=== PATIENT | female | born 1995 | race American Indian/Alaskan Native ===

== ENCOUNTER 2017-03-29 21:39 | Emergency (ER) | payer OTHER ==
[2017-03-29 21:51] VITALS: BP 121/46
--- NOTE | 2017-03-29 22:41 | Emergency Department Report ---
- General Chief Complaint: Upper Respiratory Infection Stated Complaint: PRESSURE IN EARS, NOSE & EYES Time Seen by Provider: 03/29/17 22:25 Source: patient Mode of arrival: Ambulatory Limitations: No Limitations - History of Present Illness Initial Comments: This is a 21-year-old female nontoxic, well nourished in appearance, no acute signs of distress presents to the ED complaining of congestion, rhinorrhea, cough, and frontal sinus pain 3 days. Patient stated her daughter was diagnosed with upper wrist infection and sinusitis and is being treated with Augmentin. She denies any chest pain, shortness of breath, fever, chills, nausea, vomiting, headache, earache, numbness or tingling. Patient denies any allergies. Past medical history includes migraine headaches. MD Complaint: cough, rhinorrhea, nasal congestion, sinus pain -: Gradual, days(s) (3) Severity: mild Severity scale (0 -10): 6 Quality: aching Consistency: constant Improves With: nothing Worsens With: nothing Context: sick contacts (daughter) Associated Symptoms: rhinorrhea, nasal congestion, cough, other (frontal sinus pain). denies: fever, chills, myalgias, diaphoresis, headache, sore throat, stiff neck, chest pain, shortness of breath, abdominal pain, nausea, diarrhea, dysuria, rash, confusion, right sweats, weight loss, epistaxis, hoarseness, ear pain Treatments Prior to Arrival: none - Related Data Previous Rx's Medication Instructions Recorded Last Taken Type Amoxicillin/K Clav Tab [Augmentin 1 tab PO Q12HR #20 tab 03/29/17 Unknown Rx 875 mg] Allergies Allergy/AdvReac Type Severity Reaction Status Date / Time No Known Allergies Allergy Verified 03/29/17 21:45 ED Review of Systems ROS: Stated complaint: PRESSURE IN EARS, NOSE & EYES Other details as noted in HPI Constitutional: denies: chills, fever Eyes: denies: eye pain, eye discharge, vision change ENT: denies: ear pain, throat pain Respiratory: cough. denies: shortness of breath, wheezing Cardiovascular: denies: chest pain, palpitations Endocrine: no symptoms reported Gastrointestinal: denies: abdominal pain, nausea, diarrhea Genitourinary: denies: urgency, dysuria, discharge Musculoskeletal: denies: back pain, joint swelling, arthralgia Skin: denies: rash, lesions Neurological: denies: headache, weakness, paresthesias Psychiatric: denies: anxiety, depression Hematological/Lymphatic: denies: easy bleeding, easy bruising ED Past Medical Hx - Past Medical History Hx Headaches / Migraines: Yes - Surgical History Past Surgical History?: Yes Additional Surgical History: wisdom teeth - Social History Smoking Status: Never Smoker Substance Use Type: None - Medications Home Medications: Home Medications Medication Instructions Recorded Confirmed Last Taken Type Amoxicillin/K Clav Tab [Augmentin 1 tab PO Q12HR #20 tab 03/29/17 Unknown Rx 875 mg] ED Physical Exam - General Limitations: No Limitations General appearance: alert, in no apparent distress - Head Head exam: Present: atraumatic, normocephalic, normal inspection - Eye Eye exam: Present: normal appearance, PERRL, EOMI. Absent: scleral icterus, conjunctival injection, nystagmus, periorbital swelling, periorbital tenderness Pupils: Present: normal accommodation - ENT ENT exam: Present: normal exam, normal orophraynx, mucous membranes moist, TM's normal bilaterally, normal external ear exam - Neck Neck exam: Present: normal inspection, full ROM. Absent: tenderness, meningismus, lymphadenopathy, thyromegaly - Respiratory Respiratory exam: Present: normal lung sounds bilaterally. Absent: respiratory distress, wheezes, rales, rhonchi, stridor, chest wall tenderness, accessory muscle use, decreased breath sounds, prolonged expiratory - Cardiovascular Cardiovascular Exam: Present: regular rate, normal rhythm, normal heart sounds. Absent: bradycardia, tachycardia, irregular rhythm, systolic murmur, diastolic murmur, rubs, gallop - GI/Abdominal GI/Abdominal exam: Present: soft, normal bowel sounds. Absent: distended, tenderness, guarding, rebound, rigid, diminished bowel sounds - Rectal Rectal exam: Present: deferred - Extremities Exam Extremities exam: Present: normal inspection, full ROM, normal capillary refill. Absent: tenderness, pedal edema, joint swelling, calf tenderness - Back Exam Back exam: Present: normal inspection, full ROM. Absent: tenderness, CVA tenderness (R), CVA tenderness (L), muscle spasm, paraspinal tenderness, vertebral tenderness, rash noted - Neurological Exam Neurological exam: Present: alert, oriented X3, CN II-XII intact, normal gait, reflexes normal - Psychiatric Psychiatric exam: Present: normal affect, normal mood - Skin Skin exam: Present: warm, dry, intact, normal color. Absent: rash - Other Other exam information: Frontal sinus tenderness upon palpation. ED Course Vital Signs 03/29/17 21:45 Temperature 98.5 F Pulse Rate 84 Respiratory 16 Rate Blood Pressure 121/46 O2 Sat by Pulse 95 Oximetry - Reevaluation(s) Reevaluation #1: 03/29/17 22:40 Patient speaking in full sentences but no signs of distress. Critical care attestation.: If time is entered above; I have spent that time in minutes in the direct care of this critically ill patient, excluding procedure time. ED Disposition Clinical Impression: Sinusitis Qualifiers: Sinusitis location: frontal Chronicity: unspecified Qualified Code(s): J32.1 - Chronic frontal sinusitis Disposition: - TO HOME OR SELFCARE Is pt being admited?: No Does the pt Need Aspirin: No Condition: Stable Instructions: Amoxicillin/Clavulanate Potassium (By mouth), Sinusitis (ED) Additional Instructions: Follow-up with a primary care doctor in 3-5 days or if symptoms worsen and continue return to emergency room as soon as possible possible. Prescriptions: Amoxicillin/K Clav Tab [Augmentin 875 mg] 1 tab PO Q12HR #20 tab Referrals: JACKSON SHARP MD [Primary Care Provider] - 3-5 Days Forms: Work/School Release Form(ED)
== END 2017-03-29 22:55 | disposition home or self-care (01) ==
LOC: ED 21:39
DX: J32.1 Chronic frontal sinusitis (principal); G43.909 Migraine, unspecified, not intractable, without status migrainosus
CPT/HCPCS: 99282

== ENCOUNTER 2017-07-03 21:30 | Emergency (ER) | payer OTHER ==
[2017-07-03 21:39] VITALS: BP 129/69
[2017-07-03] MEDS ORDERED: TYLENOL PO ONE (22:44)
--- NOTE | 2017-07-03 22:52 | Emergency Department Report ---
ED ENT HPI - General Chief complaint: Sore Throat Stated complaint: SORE THROAT Time Seen by Provider: 07/03/17 21:53 Source: patient Mode of arrival: Ambulatory Limitations: No Limitations - History of Present Illness Initial comments: PT states she started having a sore throat on . PT states she has not taken anything for this because she was just dx with by her [employer] on 07-02-17. PT states she has nausea but no vomiting. PT states she is having nasal congestion and cough. Denies fever or body aches. PT states she came to the hospital because she was afraid she might make her 3 year old sick. PT states the 3 year old has not been sick MD complaint: sore throat -: Gradual, days(s) (3) Severity scale (0 -10): 6 Quality: aching Consistency: constant Improves with: cold therapy (pt states it feels better when cold air hits her throat ) Worsens with: swallowing, eating Associated Symptoms: cough, pain with swallowing, sore throat, rhinorrhea. denies: fever - Related Data Previous Rx's Medication Instructions Recorded Last Taken Type Acetaminophen [Tylenol Extra 500 mg PO QID PRN #15 tablet 07/03/17 Unknown Rx Strength] Allergies Allergy/AdvReac Type Severity Reaction Status Date / Time No Known Allergies Allergy Verified 07/03/17 21:37 ED Dental HPI - General Chief complaint: Sore Throat Stated complaint: SORE THROAT Time Seen by Provider: 07/03/17 21:53 Source: patient Mode of arrival: Ambulatory Limitations: No Limitations - Related Data Previous Rx's Medication Instructions Recorded Last Taken Type Acetaminophen [Tylenol Extra 500 mg PO QID PRN #15 tablet 07/03/17 Unknown Rx Strength] Allergies Allergy/AdvReac Type Severity Reaction Status Date / Time No Known Allergies Allergy Verified 07/03/17 21:37 ED Review of Systems ROS: Stated complaint: SORE THROAT Other details as noted in HPI Comment: All other systems reviewed and negative Constitutional: denies: fever, weakness ENT: as per HPI, throat pain. denies: ear pain Respiratory: cough. denies: shortness of breath, SOB with exertion, SOB at rest Gastrointestinal: nausea. denies: abdominal pain, vomiting Genitourinary: other (recently dx with ) Neurological: denies: headache ED Past Medical Hx - Past Medical History Hx Headaches / Migraines: Yes - Surgical History Additional Surgical History: wisdom teeth - Social History Smoking Status: Never Smoker Substance Use Type: None - Medications Home Medications: Home Medications Medication Instructions Recorded Confirmed Last Taken Type Acetaminophen [Tylenol Extra 500 mg PO QID PRN #15 tablet 07/03/17 Unknown Rx Strength] ED Physical Exam - General Limitations: No Limitations General appearance: alert, in no apparent distress - Head Head exam: Present: atraumatic, normocephalic, normal inspection - Eye Eye exam: Present: normal appearance, PERRL, EOMI. Absent: conjunctival injection - ENT ENT exam: Present: normal exam, normal orophraynx, mucous membranes moist, TM's normal bilaterally, normal external ear exam - Neck Neck exam: Present: normal inspection, full ROM. Absent: lymphadenopathy - Respiratory Respiratory exam: Present: normal lung sounds bilaterally. Absent: respiratory distress, chest wall tenderness - Cardiovascular Cardiovascular Exam: Present: regular rate, normal rhythm, normal heart sounds - GI/Abdominal GI/Abdominal exam: Present: soft, normal bowel sounds. Absent: tenderness, guarding, rebound - Extremities Exam Extremities exam: Present: normal inspection, full ROM - Back Exam Back exam: Present: normal inspection, full ROM. Absent: tenderness, CVA tenderness (R), CVA tenderness (L) - Psychiatric Psychiatric exam: Present: normal affect, normal mood - Skin Skin exam: Present: warm, dry, intact, normal color ED Course Vital Signs 07/03/17 07/03/17 21:37 23:00 Temperature 98.2 F Pulse Rate 111 H Respiratory 18 18 Rate Blood Pressure 129/69 O2 Sat by Pulse 98 Oximetry - Reevaluation(s) Reevaluation #1: 07/03/17 22:59 PT aware of rapid strep results and dx. Pt has no questions at this time. - Pulse Oximetry Interpretation Digit-Finger Initial Pulse Oximetry Readin Actions Taken: none ED Medical Decision Making - Lab Data rapid strep negative - Differential Diagnosis strep pharyngits, uri Critical Care Time: No Critical care attestation.: If time is entered above; I have spent that time in minutes in the direct care of this critically ill patient, excluding procedure time. ED Disposition Clinical Impression: Viral URI with cough Disposition: TO HOME OR SELFCARE Is pt being admited?: No Does the pt Need Aspirin: No Condition: Stable Instructions: Pharyngitis (ED), Cold Symptoms (ED) Additional Instructions: Increase fluids Take your vitamins check with your pharmacist or [employer] before taking any OTC medication follow up with [employer] as scheduled Follow up with PCP in 3- 5 days Return to the ED if worsening or concerns Prescriptions: Acetaminophen [Tylenol Extra Strength] 500 mg PO QID PRN #15 tablet PRN Reason: Pain , Severe (7-10) Referrals: LIANA ADAMS MD [Primary Care Provider] - 3-5 Days Forms: Work/School Release Form(ED) Time of Disposition: 23:05
== END 2017-07-03 23:17 | disposition home or self-care (01) ==
LOC: ED 21:30
DX: O26.891 Other specified pregnancy related conditions, first trimester (principal); J06.9 Acute upper respiratory infection, unspecified; G43.909 Migraine, unspecified, not intractable, without status migrainosus; Z3A.01 Less than 8 weeks gestation of pregnancy
CPT/HCPCS: 87116; 87430; 99282

== ENCOUNTER 2018-04-20 17:48 | Emergency (ER) | payer OTHER ==
[2018-04-20] MEDS ORDERED: NACL 0.9% 500 ML 500 ML IV ONE (18:33)
--- NOTE | 2018-04-20 18:34 | Emergency Department Report ---
ED General Adult HPI - General Chief complaint: Chest Pain Stated complaint: LEFT FOOT/CHEST PAIN Time Seen by Provider: 04/20/18 18:26 Source: patient, RN notes reviewed Mode of arrival: Wheelchair Limitations: No Limitations - History of Present Illness Initial comments: This is a pleasant 22-year-old female who is not known to this provider previously, she is 2, para 2, and delivered approximately 5 weeks ago. Presents to the ER with complaint of central chest pain for 4 days, which is central, does not radiate anywhere, and increases with deep inspiration and decreases with rest. She describes mild shortness of breath. This source of breath is intermittent. She also describes nontraumatic left foot pain and swelling, greater over the past 4 days. The symptoms are constant. They do not radiate anywhere. She denies medical issues during her recent , and specifically denies hypertension or preeclampsia. She reports that she had a for this recent delivery, and reports that she has follow-up tomorrow with her [employer] doctor. -: Gradual, days(s) Location: chest, left, lower extremity Quality: aching Consistency: constant Improves with: rest Worsens with: movement Associated Symptoms: chest pain, shortness of breath, other (left foot pain, left foot swelling). denies: confusion, cough, diaphoresis, fever/chills, headaches, loss of appetite, malaise, nausea/vomiting, rash, seizure, syncope, weakness - Related Data Previous Rx's Medication Instructions Recorded Last Taken Type Acetaminophen [Tylenol Extra 500 mg PO QID PRN #15 tablet 07/03/17 Unknown Rx Strength] Allergies Allergy/AdvReac Type Severity Reaction Status Date / Time No Known Allergies Allergy Verified 04/20/18 18:00 ED Review of Systems ROS: Stated complaint: LEFT FOOT/CHEST PAIN Other details as noted in HPI ED Past Medical Hx - Past Medical History Hx Headaches / Migraines: Yes Hx Psychiatric Treatment: Yes (depression, bipolar) - Surgical History Additional Surgical History: wisdom teeth, c/s - Social History Smoking Status: Never Smoker Substance Use Type: None - Medications Home Medications: Home Medications Medication Instructions Recorded Confirmed Last Taken Type Acetaminophen [Tylenol Extra 500 mg PO QID PRN #15 tablet 07/03/17 Unknown Rx Strength] ED Physical Exam - General Limitations: No Limitations General appearance: alert, in no apparent distress - Head Head exam: Present: atraumatic, normocephalic - Eye Eye exam: Present: normal appearance - ENT ENT exam: Present: normal exam, normal orophraynx, mucous membranes moist, normal external ear exam - Neck Neck exam: Present: normal inspection, full ROM - Respiratory Respiratory exam: Present: normal lung sounds bilaterally, other (during chest and breast exam, I am chaperoned by nurse Hayde Delcid). Absent: respiratory distress, chest wall tenderness - Cardiovascular Cardiovascular Exam: Present: regular rate, normal rhythm, normal heart sounds. Absent: bradycardia, tachycardia, irregular rhythm, systolic murmur, diastolic murmur, rubs, gallop - GI/Abdominal GI/Abdominal exam: Present: soft, normal bowel sounds, other ( surgical site is healing well on the suprapubic area, there is minimal area of skin separation. There is no redness, pus or streaking). Absent: distended, tenderness, guarding, rebound, rigid, pulsatile mass - Extremities Exam Extremities exam: Present: normal inspection, full ROM, normal capillary refill , pedal edema, calf tenderness (left calf tenderness.), other (2+ pulses noted in the bilateral upper, lower extremities. There is no palpable cord. The left leg is more swollen and larger than the right leg. Compartments are soft.) . Absent: tenderness - Back Exam Back exam: Present: normal inspection, full ROM. Absent: tenderness, CVA tenderness (R), paraspinal tenderness, vertebral tenderness - Neurological Exam Neurological exam: Present: alert, oriented X3, CN II-XII intact, normal gait, other (2+ pulses noted in the bilateral upper, lower extremities. Compartments soft. No long bony tenderness. The pelvis is stable.). Absent: motor sensory deficit - Psychiatric Psychiatric exam: Present: normal affect, normal mood - Skin Skin exam: Present: warm, dry, intact, normal color. Absent: rash ED Course Vital Signs 04/20/18 04/20/18 18:00 19:48 Temperature 98 F 98.2 F Pulse Rate 79 80 Respiratory 18 16 Rate Blood Pressure 130/90 Blood Pressure 130/82 [Right] O2 Sat by Pulse 96 99 Oximetry - Reevaluation(s) Reevaluation #1: 04/20/18 20:41 Differential diagnosis, including but not limited to: Pleuritis, pericarditis, myocarditis, pneumonia, GERD, gastritis, acute coronary syndrome, pulmonary embolus DVT Assessment and plan: 22-year-old female who is , with asymmetric lower extremity swelling and chest pain, shortness of breath. Patient will be treated empirically with Lovenox and appropriate pain medication. Patient arrived after hours and we are therefore not able to perform lower extremity DVT study. Moderate pretest probability, therefore not suitable to be risk stratified by d-dimer, so we will obtain inferior CT scan of the chest. Patient is counseled to not breast feed for at least the next 24 hours. X-ray of the chest is unremarkable. Reevaluation #2: 04/20/18 21:32 Vital signs remained stable. CT scan of the chest is negative for pulmonary embolus, pneumonia. Urinalysis demonstrates 100+ protein, but is also contaminated, patient is not hypertensive, and has normal liver function tests. She is also following up with her [employer] doctor tomorrow. Patient treated empirically with Lovenox, and given outpatient DVT study/ requisition form. She can also follow up with outpatient cardiology to complete her cardiac risk stratification; patient is low risk by the heart score. ED Medical Decision Making - Lab Data Result diagrams: 04/20/18 19:06 04/20/18 19:06 Vital Signs 04/20/18 04/20/18 18:00 19:48 Temperature 98 F 98.2 F Pulse Rate 79 80 Respiratory 18 16 Rate Blood Pressure 130/90 Blood Pressure 130/82 [Right] O2 Sat by Pulse 96 99 Oximetry Lab Results 04/20/18 04/20/18 04/20/18 Range/Units 19:06 19:06 19:06 WBC 8.9 (4.5-11.0) K/mm3 RBC 4.78 (3.65-5.03) M/mm3 Hgb 11.9 (10.1-14.3) gm/dl Hct 37.1 (30.3-42.9) % MCV 78 L (79-97) fl MCH 25 L (28-32) pg MCHC 32 (30-34) % RDW 15.9 H (13.2-15.2) % Plt Count 369 (140-440) K/mm3 Lymph % (Auto) 20.1 (13.4-35.0) % [place] % (Auto) 13.5 H (0.0-7.3) % Eos % (Auto) 1.1 (0.0-4.3) % Baso % (Auto) 0.7 (0.0-1.8) % Lymph # 1.8 (1.2-5.4) K/mm3 [place] # 1.2 H (0.0-0.8) K/mm3 Eos # 0.1 (0.0-0.4) K/mm3 Baso # 0.1 (0.0-0.1) K/mm3 Seg Neutrophils % 64.6 (40.0-70.0) % Seg Neutrophils # 5.7 (1.8-7.7) K/mm3 PT 13.9 (12.2-14.9) Sec. INR 1.02 (0.87-1.13) APTT 26.4 (24.2-36.6) Sec. Sodium 139 (137-145) mmol/L Potassium 3.7 (3.6-5.0) mmol/L Chloride 100.9 (98-107) mmol/L Carbon Dioxide 25 (22-30) mmol/L Anion Gap 17 mmol/L BUN 7 (7-17) mg/dL Creatinine 0.6 L (0.7-1.2) mg/dL Estimated GFR > 60 ml/min BUN/Creatinine Ratio 12 % Glucose 85 (65-100) mg/dL Calcium 9.1 (8.4-10.2) mg/dL Total Bilirubin 0.30 (0.1-1.2) mg/dL AST 16 (5-40) units/L ALT 11 (7-56) units/L Alkaline Phosphatase 114 (35-129) units/L Troponin T < 0.010 (0.00-0.029) ng/mL Total Protein 7.3 (6.3-8.2) g/dL Albumin 4.3 (3.9-5) g/dL Albumin/Globulin Ratio 1.4 % - EKG Data -: EKG Interpreted by Ga EKG shows normal: sinus rhythm Rate: normal - EKG Data When compared to previous EKG there are: previous EKG unavailable 04/20/18 20:40 Sinus, 76 bpm, normal axis, normal intervals, incomplete right bundle-branch block, T-wave inversions in the inferior leads, abnormal EKG, this is not a STEMI, there is no prior EKG available for comparison. - Radiology Data Radiology results: image reviewed interpreted by me: X-ray of the chest, interpreted by me, negative for acute disease Critical care attestation.: If time is entered above; I have spent that time in minutes in the direct care of this critically ill patient, excluding procedure time. ED Disposition Clinical Impression: Chest pain, Left leg pain, Proteinuria Disposition: - TO HOME OR SELFCARE Is pt being admited?: No Does the pt Need Aspirin: No Condition: Stable Instructions: Chest Pain (ED) Additional Instructions: please call [phone], listen for the prompts and select option 1 to speak to our staff, Available Wednesday through Wednesday, 7 am to 5 pm PM to assist you. Make certain to bring the ultrasound requisition form with you. Follow-up with either the listed cardiology groups within the next 3-5 days to complete outpatient cardiac risk stratification and evaluation for possible stress test. Take acetaminophen [id number] as needed for pain. Do not breast feed for the next 24 hours. 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 This is most likely secondary to contaminated urine. Please return to the ER right away with chest pain, shortness of breath, passing out, lightheadedness, shortness of breath, new, worsening or different symptoms. Referrals: [facility] [Provider Group] - 3-5 Days [facility] [Provider Group] - 3-5 Days
[2018-04-20 19:24] LABS: Basophils # (Auto) 0.1 K/mm3 (0.0-0.1); Basophils % (Auto) 0.7 % (0.0-1.8); Eosinophils # (Auto) 0.1 K/mm3 (0.0-0.4); Eosinophils % (Auto) 1.1 % (0.0-4.3); Hematocrit 37.1 % (30.3-42.9); Hemoglobin 11.9 gm/dl (10.1-14.3); Lymphocytes # (Auto) 1.8 K/mm3 (1.2-5.4); Lymphocytes % (Auto) 20.1 % (13.4-35.0); Mean Corpuscular HGB Conc 32 % (30-34); Mean Corpuscular Volume 78 fl (79-97); Monocytes # (Auto) 1.2 K/mm3 (0.0-0.8); Monocytes % (Auto) 13.5 % (0.0-7.3); Platelet Count 369 K/mm3 (140-440); Red Blood Count 4.78 M/mm3 (3.65-5.03); Red Cell Distribution Width 15.9 % (13.2-15.2)
[2018-04-20 19:25] LABS: Mean Corpuscular Hemoglobin 25 pg (28-32)
[2018-04-20 19:42] LABS: Alanine Aminotransferase 11 units/L (7-56); Albumin 4.3 g/dL (3.9-5); BUN/Creatinine Ratio 12; Blood Urea Nitrogen 7 mg/dL (7-17); Calcium 9.1 mg/dL (8.4-10.2); Hemolysis Index 17
[2018-04-20 19:45] LABS: INR 1.02 (0.87-1.13); Partial Thromboplastin Time 26.4 Sec. (24.2-36.6)
[2018-04-20] MEDS ORDERED: LOVENOX SUB-Q STA (20:35)
[2018-04-20] MEDS ORDERED: SUBLIMAZE IV ONE (20:40)
[2018-04-20] MEDS ORDERED: TYLENOL PO ONE (20:40)
--- NOTE | 2018-04-20 20:46 | XRay Report ---
FINAL REPORT PROCEDURE: XR CHEST ROUTINE 2V TECHNIQUE: PA and lateral chest radiographs were obtained. CPT 52419 HISTORY: Chest Pain COMPARISON: No prior studies are available for comparison. FINDINGS: Heart: Normal. Mediastinum/Vessels: Normal. Lungs/Pleural space: Normal. Bony thorax: No acute osseous abnormality. Other: IMPRESSION: Normal examination.
--- NOTE | 2018-04-20 21:03 | Cat Scan Report ---
FINAL REPORT PROCEDURE: CT ANGIO CHEST TECHNIQUE: Computerized tomographic angiography of the chest was performed after the IV injection of iodinated nonionic contrast including image processing. The image data was postprocessed using 2-dimensional multiplanar reformatted (MPR) and 3-dimensional (MIP and/or volume rendered) techniques. HISTORY: chest pain, shortness of breath, pleuri COMPARISON: No prior studies are available for comparison. FINDINGS: Heart and pericardium: Normal. Thoracic aorta: There is no thoracic aortic aneurysm or dissection.. Pulmonary vasculature: There is no pulmonary embolism.. Lymph nodes: No enlarged thoracic lymph nodes. Lungs: Lungs are expanded. There are no infiltrates, effusions or pneumothoraces.. Pleural space: No effusion, thickening, or pneumothorax. Musculoskeletal structures: No significant abnormality. Upper abdominal structures: No significant abnormality. IMPRESSION: There is no pulmonary embolism. There is no thoracic aortic aneurysm or dissection.
[2018-04-20 21:15] LABS: Bacteria,Urine 1+ /HPF (Negative); Bilirubin,Urine NEG (Negative); Blood,Urine LG (Negative); Color,Urine Yellow (Yellow); Mucus,Urine 3+ /HPF; Urobilinogen,Urine < 2.0 mg/dL (<2.0)
[2018-04-20 23:46] VITALS: BP 127/80
== END 2018-04-20 22:40 | disposition home or self-care (01) ==
LOC: ED 17:48
DX: R07.89 Other chest pain (principal); M79.672 Pain in left foot; M79.89 Other specified soft tissue disorders; R80.9 Proteinuria, unspecified; G43.909 Migraine, unspecified, not intractable, without status migrainosus
CPT/HCPCS: 36415; 71046; 71275; 80053; 81001; 84484; 85025; 85610; 85730; 93005; 93010; 96372; 96374; 99285; J1650; J3010; Q9967

== ENCOUNTER 2018-04-21 13:36 | Outpatient (CLI) | payer OTHER | END 2018-04-21 13:37 | disposition home or self-care (01) | LOC: VAS 13:36 | PROVIDERS: ATTEND Emergency Medicine | DX: R22.43 Localized swelling, mass and lump, lower limb, bilateral (principal) | CPT/HCPCS: 93970 ==

== ENCOUNTER 2018-11-29 20:55 | Emergency (ER) | payer BC, OTHER ==
[2018-11-29] MEDS ORDERED: TYLENOL PO ONE (21:11)
--- NOTE | 2018-11-29 21:14 | Emergency Department Report ---
Chief Complaint: Upper Respiratory Infection Stated Complaint: COLD/FLU Time Seen by Provider: 11/29/18 21:08 - HPI History of Present Illness: This is a 23 y.o. F. that presents with fever, sore throat, and headache since yesterday. Last NSAID yesterday - Exam Vital Signs: Vital Signs 11/29/18 20:58 Temperature 101.3 F H Pulse Rate 115 H Respiratory 18 Rate Blood Pressure 138/80 O2 Sat by Pulse 96 Oximetry MSE screening note: Focused history and physical exam performed. Due to findings the following was ordered: This initial assessment/diagnostic orders/clinical plan/treatment(s) is/are subject to change based on patient's health status, clinical progression and re- assessment by fellow clinical providers in the ED. Further treatment and workup at subsequent clinical providers discretion. Patient/guardians urged not to elope from the ED as their condition may be serious if not clinically assessed and managed. Initial orders include: 1- Patient sent to [facility] for further evaluation and treatment 2- Rapid flu and strep 3- Tylenol 975 mg po ED Disposition for [facility] [place] Condition: Stable
[2018-11-29] MEDS ORDERED: TORADOL ONE (21:37)
[2018-11-29] MEDS ORDERED: NACL 0.9% 1000 ML 1,000 ML ONE (21:37)
--- NOTE | 2018-11-30 00:30 | Emergency Department Report ---
- General Chief Complaint: Upper Respiratory Infection Stated Complaint: COLD/FLU Time Seen by Provider: 11/29/18 21:08 Source: patient Mode of arrival: Ambulatory Limitations: No Limitations - History of Present Illness MD Complaint: fever, cough, rhinorrhea, nasal congestion -: Gradual Severity: moderate Quality: dull Consistency: constant Improves With: nothing Worsens With: nothing Associated Symptoms: headache, rhinorrhea, cough - Related Data Previous Rx's Medication Instructions Recorded Last Taken Type Acetaminophen [Tylenol Extra 500 mg PO QID PRN #15 tablet 07/03/17 Unknown Rx Strength] Ketorolac [Toradol] 10 mg PO Q6H PRN #15 tablet 11/30/18 Unknown Rx guaiFENesin/CODEINE [Robitussin AC] 5 ml PO Q6H PRN #120 ml 11/30/18 Unknown Rx Allergies Allergy/AdvReac Type Severity Reaction Status Date / Time latex Allergy Unknown Verified 11/29/18 21:03 ED Review of Systems ROS: Stated complaint: COLD/FLU Other details as noted in HPI Constitutional: denies: chills, fever Eyes: denies: eye pain, eye discharge, vision change ENT: denies: ear pain, throat pain Respiratory: denies: cough, shortness of breath, wheezing Cardiovascular: denies: chest pain, palpitations Endocrine: no symptoms reported Gastrointestinal: denies: abdominal pain, nausea, diarrhea Genitourinary: denies: urgency, dysuria, discharge Musculoskeletal: denies: back pain, joint swelling, arthralgia Skin: denies: rash, lesions Neurological: denies: headache, weakness, paresthesias Psychiatric: denies: anxiety, depression Hematological/Lymphatic: denies: easy bleeding, easy bruising ED Past Medical Hx - Past Medical History Previous Medical History?: Yes Hx Headaches / Migraines: Yes Hx Psychiatric Treatment: Yes (depression, bipolar) - Surgical History Past Surgical History?: Yes Additional Surgical History: wisdom teeth, c/s - Social History Smoking Status: Never Smoker Substance Use Type: None - Medications Home Medications: Home Medications Medication Instructions Recorded Confirmed Last Taken Type Acetaminophen [Tylenol Extra 500 mg PO QID PRN #15 tablet 07/03/17 Unknown Rx Strength] Ketorolac [Toradol] 10 mg PO Q6H PRN #15 tablet 11/30/18 Unknown Rx guaiFENesin/CODEINE [Robitussin AC] 5 ml PO Q6H PRN #120 ml 11/30/18 Unknown Rx ED Physical Exam - General Limitations: No Limitations General appearance: alert, other (patient appears to be ill but nontoxic) - Head Head exam: Present: atraumatic, normocephalic - Eye Eye exam: Present: normal appearance, PERRL, EOMI Pupils: Present: normal accommodation - ENT ENT exam: Present: mucous membranes moist, other (physical congestion bilaterally or with sinus swelling, clear nasal discharge and posterior pharyngeal drainage as well. Small effusion to the left hip.) - Neck Neck exam: Present: normal inspection - Respiratory Respiratory exam: Present: normal lung sounds bilaterally. Absent: respiratory distress, wheezes, rales, rhonchi - Cardiovascular Cardiovascular Exam: Present: regular rate, normal rhythm. Absent: systolic murmur, diastolic murmur, rubs, gallop - GI/Abdominal GI/Abdominal exam: Present: soft, normal bowel sounds - Extremities Exam Extremities exam: Present: normal inspection, normal capillary refill - Back Exam Back exam: Present: normal inspection - Neurological Exam Neurological exam: Present: alert, oriented X3, CN II-XII intact, normal gait - Psychiatric Psychiatric exam: Present: normal affect, normal mood - Skin Skin exam: Present: warm, dry, intact, normal color. Absent: rash ED Course Vital Signs 11/29/18 11/29/18 20:58 23:29 Temperature 101.3 F H 99 F Pulse Rate 115 H 98 H Respiratory 18 20 Rate Blood Pressure 138/80 Blood Pressure 121/77 [Right] O2 Sat by Pulse 96 Oximetry Critical care attestation.: If time is entered above; I have spent that time in minutes in the direct care of this critically ill patient, excluding procedure time. ED Disposition Clinical Impression: Viral syndrome Disposition: DC-01 TO HOME OR SELFCARE Is pt being admited?: No Does the pt Need Aspirin: No Condition: Stable Instructions: Dehydration in Children (ED), Viral Syndrome (ED) Prescriptions: guaiFENesin/CODEINE [Robitussin AC] 5 ml PO Q6H PRN #120 ml PRN Reason: Cough Ketorolac [Toradol] 10 mg PO Q6H PRN #15 tablet PRN Reason: Pain Referrals: MARI TIWARI MD [Primary Care Provider] - 3-5 Days
[2018-11-30 01:06] VITALS: BP 116/69
== END 2018-11-30 01:06 | disposition home or self-care (01) ==
LOC: ED 20:55 → EEVIPCON 20:55 → ED 11-30 01:06
DX: B34.9 Viral infection, unspecified (principal); G43.909 Migraine, unspecified, not intractable, without status migrainosus; Z91.040 Latex allergy status
CPT/HCPCS: 87116; 87400; 87430; 99283; J1885; J7030

== ENCOUNTER 2018-12-29 01:26 | Emergency (ER) | payer BC ==
[2018-12-29 01:38] VITALS: BP 121/81
[2018-12-29] MEDS ORDERED: NORCO 5/325 PO ONE ×2 (02:19→03:51)
[2018-12-29] MEDS ORDERED: TORADOL IM ONE (02:20)
--- NOTE | 2018-12-29 03:04 | XRay Report ---
PROCEDURE: XR SPINE LUMBOSACRAL 2-3V TECHNIQUE: 2 views of the lumbar spine HISTORY: back pain COMPARISONS: None FINDINGS: Lumbar vertebral bodies are normal in height and alignment. The disc spaces are well preser vidal. There is no evidence of acute fracture or subluxation. The soft tissues are unremarkable. IMPRESSION: Normal lumbar spine series This document is electronically signed by Sheela Causey MD., December 29 2018 03:01:30 AM ET
--- NOTE | 2018-12-29 03:42 | Emergency Department Report ---
ED Back Pain/Injury HPI - General Chief Complaint: Back Pain/Injury Stated Complaint: BACK PAIN Time Seen by Provider: 12/29/18 01:47 Source: patient Limitations: No Limitations - History of Present Illness Initial Comments: patient presents to er with low back pain x 4-6hrs. Pain is worse with activity and improved with rest. no fever, chills or night sweats. MD Complaint: back pain Onset/Timin -: days(s) - Related Data Previous Rx's Medication Instructions Recorded Last Taken Type Acetaminophen [Tylenol Extra 500 mg PO QID PRN #15 tablet 07/03/17 Unknown Rx Strength] guaiFENesin/CODEINE [Robitussin AC] 5 ml PO Q6H PRN #120 ml 11/30/18 Unknown Rx Ketorolac [Toradol] 10 mg PO Q6H PRN #15 tablet 12/29/18 Unknown Rx Allergies Allergy/AdvReac Type Severity Reaction Status Date / Time latex Allergy Unknown Verified 11/29/18 21:03 ED Review of Systems ROS: Stated complaint: BACK PAIN Other details as noted in HPI Comment: All other systems reviewed and negative Cardiovascular: denies: chest pain, palpitations Endocrine: denies: excessive sweating Gastrointestinal: denies: abdominal pain Genitourinary: denies: urgency Musculoskeletal: back pain ED Past Medical Hx - Past Medical History Hx Headaches / Migraines: Yes Hx Psychiatric Treatment: Yes (depression, bipolar) - Surgical History Additional Surgical History: wisdom teeth, c/s - Social History Smoking Status: Never Smoker - Medications Home Medications: Home Medications Medication Instructions Recorded Confirmed Last Taken Type Acetaminophen [Tylenol Extra 500 mg PO QID PRN #15 tablet 07/03/17 Unknown Rx Strength] guaiFENesin/CODEINE [Robitussin AC] 5 ml PO Q6H PRN #120 ml 11/30/18 Unknown Rx Ketorolac [Toradol] 10 mg PO Q6H PRN #15 tablet 12/29/18 Unknown Rx ED Physical Exam - General Limitations: No Limitations General appearance: alert, in no apparent distress - Head Head exam: Present: atraumatic, normocephalic - Eye Eye exam: Present: normal appearance, PERRL, EOMI - ENT ENT exam: Present: normal exam - Neck Neck exam: Present: normal inspection - Respiratory Respiratory exam: Present: normal lung sounds bilaterally - Cardiovascular Cardiovascular Exam: Present: regular rate, normal rhythm - GI/Abdominal GI/Abdominal exam: Present: soft, normal bowel sounds - Back Exam Back exam: Present: paraspinal tenderness (lumbosacral) ED Course Vital Signs 12/29/18 01:28 Temperature 98.1 F Pulse Rate 84 Respiratory 16 Rate Blood Pressure 121/81 O2 Sat by Pulse 99 Oximetry Critical care attestation.: If time is entered above; I have spent that time in minutes in the direct care of this critically ill patient, excluding procedure time. ED Disposition Clinical Impression: Back pain Qualifiers: Back pain location: low back pain Chronicity: acute Back pain laterality: unspecified Sciatica presence: without sciatica Qualified Code(s): M54.5 - Low back pain Acute low back pain Qualifiers: Back pain laterality: right Sciatica presence: with sciatica Sciatica laterality: sciatica of right side Qualified Code(s): M54.41 - Lumbago with sciatica, right side Disposition: TO HOME OR SELFCARE Is pt being admited?: No Does the pt Need Aspirin: No Condition: Stable Instructions: Low Back Strain (ED), Acute Low Back Pain (ED) Prescriptions: Ketorolac [Toradol] 10 mg PO Q6H PRN #15 tablet PRN Reason: Pain Referrals: ANTONIA RUBIN MD [Staff Physician] - 3-5 Days PRIMARY CARE, [Primary Care Provider] - 3-5 Days Forms: Work/School Release Form
== END 2018-12-29 04:12 | disposition home or self-care (01) ==
LOC: ED 01:26
DX: M54.5 Low back pain (principal); G43.909 Migraine, unspecified, not intractable, without status migrainosus; F31.9 Bipolar disorder, unspecified; Z79.899 Other long term (current) drug therapy; Z91.040 Latex allergy status
CPT/HCPCS: 72100; 96372; 99283; J1885

== ENCOUNTER 2019-05-10 06:41 | Emergency (ER) | payer BC ==
[2019-05-10 06:52] VITALS: BP 121/81
[2019-05-10] MEDS ORDERED: predniSONE 20 MG TAB PO ONE (07:14)
[2019-05-10] MEDS ORDERED: KETOROLAC 60 MG/2 ML INJ IM ONE (07:14)
--- NOTE | 2019-05-10 08:15 | Emergency Department Report ---
ED Back Pain/Injury HPI - General Chief Complaint: Back Pain/Injury Stated Complaint: BACK PAIN Time Seen by Provider: 05/10/19 07:14 Source: patient Limitations: No Limitations - History of Present Illness Initial Comments: This is a 23-year-old female nontoxic, well nourished in appearance, no acute signs of distress presents to the ED with c/o of acute on chronic lower back pain. Patient stated that the past 2 days she was moving and developed this pain. Patient states has history of degenerative arthritis of lumbar spine. Patient states that pain radiates through to his left lower extremity. Patient denies any trauma. Denies any bladder or bowel instability. Patient denies any urinary symptoms. Denies any fever, chills, nausea, vomiting, headache, stiff neck, chest pain or shortness of breath. Patient denies any numbness or tingling. Patient stated allergies to latex with no significant past medical history. MD Complaint: back pain -: days(s) Similar Symptoms Previously: Yes Place: work Radiation: left leg Severity: mild Severity scale (0 -10): 8 Quality: aching Consistency: intermittent Improves With: immobilization, sitting upright Worsens With: movement, walking Context: while lifting, turning/twisting Associated Symptoms: denies other symptoms. denies: confusion, weakness, chest pain, numbness, difficulty walking, cough, difficulty urinating, diaphoresis, incontinence, fever/chills, constipation, headaches, abdominal pain, loss of appetite, malaise, nausea/vomiting, rash, seizure, shortness of breath, syncope - Related Data Previous Rx's Medication Instructions Recorded Last Taken Type Acetaminophen [Tylenol Extra 500 mg PO QID PRN #15 tablet 07/03/17 Unknown Rx Strength] guaiFENesin/CODEINE [Robitussin AC] 5 ml PO Q6H PRN #120 ml 11/30/18 Unknown Rx Ketorolac [Toradol] 10 mg PO Q6H PRN #15 tablet 12/29/18 Unknown Rx Cyclobenzaprine [Flexeril] 10 mg PO QHS PRN #10 tablet 05/10/19 Unknown Rx Naproxen 500 mg PO Q8H PRN #20 tablet 05/10/19 Unknown Rx Prednisone [predniSONE 10 mg 10 mg PO .TAPER #1 tab.ds.pk 05/10/19 Unknown Rx (6-Day Pack, 21 Tabs)] Allergies Allergy/AdvReac Type Severity Reaction Status Date / Time latex Allergy Unknown Verified 11/29/18 21:03 ED Review of Systems ROS: Stated complaint: BACK PAIN Other details as noted in HPI Constitutional: denies: chills, fever Eyes: denies: eye pain, eye discharge, vision change ENT: denies: ear pain, throat pain Respiratory: denies: cough, shortness of breath, wheezing Cardiovascular: denies: chest pain, palpitations Endocrine: no symptoms reported Gastrointestinal: denies: abdominal pain, nausea, diarrhea Genitourinary: denies: urgency, dysuria, discharge Musculoskeletal: back pain. denies: joint swelling, arthralgia Skin: denies: rash, lesions Neurological: denies: headache, weakness, paresthesias Psychiatric: denies: anxiety, depression Hematological/Lymphatic: denies: easy bleeding, easy bruising ED Past Medical Hx - Past Medical History Hx Headaches / Migraines: Yes Hx Psychiatric Treatment: Yes (depression, bipolar) - Surgical History Additional Surgical History: wisdom teeth, c/s - Social History Smoking Status: Never Smoker Substance Use Type: None - Medications Home Medications: Home Medications Medication Instructions Recorded Confirmed Last Taken Type Acetaminophen [Tylenol Extra 500 mg PO QID PRN #15 tablet 07/03/17 Unknown Rx Strength] guaiFENesin/CODEINE [Robitussin AC] 5 ml PO Q6H PRN #120 ml 11/30/18 Unknown Rx Ketorolac [Toradol] 10 mg PO Q6H PRN #15 tablet 12/29/18 Unknown Rx Cyclobenzaprine [Flexeril] 10 mg PO QHS PRN #10 tablet 05/10/19 Unknown Rx Naproxen 500 mg PO Q8H PRN #20 tablet 05/10/19 Unknown Rx Prednisone [predniSONE 10 mg 10 mg PO .TAPER #1 tab.ds.pk 05/10/19 Unknown Rx (6-Day Pack, 21 Tabs)] ED Physical Exam - General Limitations: No Limitations General appearance: alert, in no apparent distress - Head Head exam: Present: atraumatic, normocephalic - Neck Neck exam: Present: normal inspection, full ROM. Absent: tenderness, meningismus, lymphadenopathy - Respiratory Respiratory exam: Present: normal lung sounds bilaterally. Absent: respiratory distress - Cardiovascular Cardiovascular Exam: Present: regular rate, normal rhythm, normal heart sounds - Extremities Exam Extremities exam: Present: normal inspection, full ROM - Back Exam Back exam: Present: normal inspection, full ROM, paraspinal tenderness (lumbar parapsinal). Absent: tenderness, CVA tenderness (R), CVA tenderness (L), muscle spasm, vertebral tenderness, rash noted - Expanded Back Exam Expanded Back exam: Absent: saddle anesthesia Back exam: Negative Straight Leg Raising: Left, Right - Neurological Exam Neurological exam: Present: alert, oriented X3, normal gait - Psychiatric Psychiatric exam: Present: normal affect, normal mood - Skin Skin exam: Present: warm, dry, intact, normal color. Absent: rash ED Course Vital Signs 05/10/19 06:44 Temperature 98.6 F Pulse Rate 86 Respiratory 16 Rate Blood Pressure 121/81 O2 Sat by Pulse 100 Oximetry - Reevaluation(s) Reevaluation #1: 05/10/19 08:15 Patient is speaking in full sentences with no signs of distress noted. ED Medical Decision Making - Medical Decision Making This is a 23-year-old female that presents with low back strain. Patient is stable was examined by me. There is no spinal tenderness. There is no cauda equina syndrome during examination. No bladder or bowel instability. Patient received Toradol 60 mg IM and prednisone in the ED which stated that symptoms has resolved and subsided. Patient is discharged with muscle relaxant and Naproxen. Patient was instructed not to operate any machinery while taking muscle relaxant as they cause her drowsiness. Patient was referred to Follow-up with a primary care doctor in 3-5 days or if symptoms worsen and continue return to emergency room as soon as possible. At time of discharge, the patient does not seem toxic or ill in appearance. No acute signs of distress noted. Patient agrees to discharge treatment plan of care. No further questions noted by the patient. This chart is dictated with using [employer] Critical care attestation.: If time is entered above; I have spent that time in minutes in the direct care of this critically ill patient, excluding procedure time. ED Disposition Clinical Impression: Low back strain Qualifiers: Encounter type: initial encounter Qualified Code(s): S39.012A - Strain of muscle, fascia and tendon of lower back, initial encounter Disposition: - TO HOME OR SELFCARE Is pt being admited?: No Does the pt Need Aspirin: No Condition: Stable Instructions: Cyclobenzaprine (By mouth), Low Back Strain (ED) Additional Instructions: Follow-up with your primary care doctor in 3-5 days or if symptoms worsen such as bladder or bowel stability, chest pain, short of breath, numbness or tingling sensation in extremities, headache, dizziness, visual changes, nausea vomiting, or abdominal pain, return back to emergency room as was possible. Take ibuprofen and Flexeril as prescribed. Do not operate heavy machinery while taking Flexeril due to sedation Prescriptions: Cyclobenzaprine [Flexeril] 10 mg PO QHS PRN #10 tablet PRN Reason: Muscle Spasm Naproxen 500 mg PO Q8H PRN #20 tablet PRN Reason: Pain , Severe (7-10) Prednisone [predniSONE 10 mg (6-Day Pack, 21 Tabs)] 10 mg PO .TAPER #1 tab.ds.pk Referrals: PRIMARY CARE, [Primary Care Provider] - 3-5 Days LUCIAN VELAZQUEZ MD [Staff Physician] - 3-5 Days [facility] [Outside] - 3-5 Days [facility] [Outside] - 3-5 Days Forms: Work/School Release Form(ED)
== END 2019-05-10 08:42 | disposition home or self-care (01) ==
LOC: ED 06:41
DX: S39.012A Strain of muscle, fascia and tendon of lower back, initial encounter (principal); G89.29 Other chronic pain; G43.909 Migraine, unspecified, not intractable, without status migrainosus; F31.9 Bipolar disorder, unspecified; Z79.899 Other long term (current) drug therapy; Z91.040 Latex allergy status; X50.0XXA Overexertion from strenuous movement or load, initial encounter; Y93.89 Activity, other specified; Y92.89 Other specified places as the place of occurrence of the external cause; Y99.8 Other external cause status
CPT/HCPCS: 96372; 99282; J1885; J7512

== ENCOUNTER 2019-08-29 15:40 | Emergency (ER) | payer BC ==
[2019-08-29 17:09] VITALS: BP 131/86
[2019-08-29] MEDS ORDERED: dexAMETHasone 20 MG/5 ML VIAL IV ONE (17:13)
[2019-08-29] MEDS ORDERED: COLCHICINE 0.6 MG CAP PO ONE (17:13)
[2019-08-29] MEDS ORDERED: MORPHINE 2 MG/1 ML INJ IV ONE (17:13)
--- NOTE | 2019-08-29 17:16 | Event Note ---
ED Screening Note Date of service: 08/29/19 Time: 17:14 ED Screening Note: 24 y o female presents to ED with a hx of gout cc of right foot gouty arthritic flare up cant ambulate on foot redness, swelling and pain noted on exam This initial assessment/diagnostic orders/clinical plan/treatment(s) is/are subject to change based on patients health status, clinical progression and re- assessment by fellow clinical providers in the ED. Further treatment and workup at subsequent clinical providers discretion. Patient/guardian urged not to elope from the ED as their condition may be serious if not clinically assessed and managed. Initial orders include: meds acc eval
--- NOTE | 2019-08-29 18:14 | Emergency Department Report ---
ED Lower Extremity HPI - General Chief Complaint: Extremity Injury, Lower Stated Complaint: GOUT RT FOOT Time Seen by Provider: 08/29/19 17:24 Source: patient Mode of arrival: Ambulatory Limitations: No Limitations - History of Present Illness Initial Comments: This is a 24-year-old female nontoxic, well nourished in appearance, no acute signs of distress presents to the ED with c/o of acute on chronic intermittent gout to right foot/ankle 1 day. Patient denies any other trauma. Patient denies any numbness, tingling, fever, chills, nausea, vomiting, chest pain, shortness of breath, headache, stiff neck. Patient denies decreased range of motion. Patient stated has decreased gait due to pain. Patient stated allergies to latex. Patient denies any significant past medical history besides gout, migraine headaches, depression and bipolar. MD Complaint: foot injury -: days(s) (1) Injury: Ankle: Right, Foot: Right Severity: mild Severity scale (0 -10): 8 Improves With: immobilization Worsens With: weight bearing, movement, palpation Associated Symptoms: swelling, able to partially bear weight, ambulatory. denies: snap/pop sensation, numbness, tingling, unable to bear weight - Related Data Previous Rx's Medication Instructions Recorded Last Taken Type Acetaminophen [Tylenol Extra 500 mg PO QID PRN #15 tablet 07/03/17 Unknown Rx Strength] guaiFENesin/CODEINE [Robitussin AC] 5 ml PO Q6H PRN #120 ml 11/30/18 Unknown Rx Ketorolac [Toradol] 10 mg PO Q6H PRN #15 tablet 12/29/18 Unknown Rx Cyclobenzaprine [Flexeril] 10 mg PO QHS PRN #10 tablet 05/10/19 Unknown Rx Naproxen 500 mg PO Q8H PRN #20 tablet 05/10/19 Unknown Rx Prednisone [predniSONE 10 mg 10 mg PO .TAPER #1 tab.ds.pk 05/10/19 Unknown Rx (6-Day Pack, 21 Tabs)] Acetaminophen/Codeine [Tylenol 1 tab PO Q6H PRN #12 tab 08/29/19 Unknown Rx /Codeine # 3 tab] Prednisone [predniSONE 10 mg 10 mg PO .TAPER #1 tab.ds.pk 08/29/19 Unknown Rx (6-Day Pack, 21 Tabs)] Allergies Allergy/AdvReac Type Severity Reaction Status Date / Time latex Allergy Unknown Verified 11/29/18 21:03 ED Review of Systems ROS: Stated complaint: GOUT RT FOOT Other details as noted in HPI Constitutional: denies: chills, fever Eyes: denies: eye pain, eye discharge, vision change ENT: denies: ear pain, throat pain Respiratory: denies: cough, shortness of breath, wheezing Cardiovascular: denies: chest pain, palpitations Endocrine: no symptoms reported Gastrointestinal: denies: abdominal pain, nausea, diarrhea Genitourinary: denies: urgency, dysuria, discharge Musculoskeletal: denies: back pain, joint swelling, arthralgia Skin: denies: rash, lesions Neurological: denies: headache, weakness, paresthesias Psychiatric: denies: anxiety, depression Hematological/Lymphatic: denies: easy bleeding, easy bruising ED Past Medical Hx - Past Medical History Previous Medical History?: Yes Hx Headaches / Migraines: Yes Hx Psychiatric Treatment: Yes (depression, bipolar) Additional medical history: gout - Surgical History Past Surgical History?: Yes Additional Surgical History: wisdom teeth, c/s - Social History Smoking Status: Never Smoker Substance Use Type: None - Medications Home Medications: Home Medications Medication Instructions Recorded Confirmed Last Taken Type Acetaminophen [Tylenol Extra 500 mg PO QID PRN #15 tablet 07/03/17 Unknown Rx Strength] guaiFENesin/CODEINE [Robitussin AC] 5 ml PO Q6H PRN #120 ml 11/30/18 Unknown Rx Ketorolac [Toradol] 10 mg PO Q6H PRN #15 tablet 12/29/18 Unknown Rx Cyclobenzaprine [Flexeril] 10 mg PO QHS PRN #10 tablet 05/10/19 Unknown Rx Naproxen 500 mg PO Q8H PRN #20 tablet 05/10/19 Unknown Rx Prednisone [predniSONE 10 mg 10 mg PO .TAPER #1 tab.ds.pk 05/10/19 Unknown Rx (6-Day Pack, 21 Tabs)] Acetaminophen/Codeine [Tylenol 1 tab PO Q6H PRN #12 tab 08/29/19 Unknown Rx /Codeine # 3 tab] Prednisone [predniSONE 10 mg 10 mg PO .TAPER #1 tab.ds.pk 08/29/19 Unknown Rx (6-Day Pack, 21 Tabs)] ED Physical Exam - General Limitations: No Limitations General appearance: alert, in no apparent distress - Head Head exam: Present: atraumatic, normocephalic - Extremities Exam Extremities exam: Present: normal inspection, full ROM, tenderness, normal capillary refill. Absent: joint swelling, calf tenderness - Expanded Lower Extremity Exam Right Hip exam: Present: normal inspection, full ROM. Absent: tenderness, swelling Upper Leg exam: Present: normal inspection, full ROM. Absent: tenderness, swelling Knee exam: Present: normal inspection, full ROM. Absent: tenderness, swelling Lower Leg exam: Present: normal inspection, full ROM. Absent: tenderness, swelling, abrasion, laceration, ecchymosis, deformity, crepidus, dislocation, erythema, palpable cord, Meng's sign Ankle exam: Present: normal inspection, full ROM, tenderness, swelling. Absent: abrasion, laceration, ecchymosis, deformity, crepidus, dislocation, erythema, anterior draw sign Foot/Toe exam: Present: normal inspection, full ROM, tenderness, swelling. Absent: abrasion, laceration, ecchymosis, deformity, crepidus, dislocation, erythema, amputation, puncture wound, foreign body, calcaneal tenderness, tenderness at base of 5th metatarsal, nail avulsion, subungual hematoma Neuro vascular tendon exam: Present: no vascular compromise Gait: Positive: observed and limited by pain - Back Exam Back exam: Present: normal inspection, full ROM - Neurological Exam Neurological exam: Present: alert, oriented X3, normal gait - Psychiatric Psychiatric exam: Present: normal affect, normal mood - Skin Skin exam: Present: warm, dry, intact, normal color. Absent: rash ED Course Vital Signs 08/29/19 08/29/19 15:48 17:09 Temperature 97.9 F 97.9 F Pulse Rate 87 87 Respiratory 18 18 Rate Blood Pressure 131/86 131/86 O2 Sat by Pulse 98 97 Oximetry - Reevaluation(s) Reevaluation #1: 08/29/19 18:17 Patient is speaking in full sentences with no signs of distress noted. ED Lower Extremity MDM - Medical Decision Making This is a 24-year-old female that presents with gout flareup. Patient is stable and was examined by me. Upon examination there is no signs of joint sepsis, cellulitis or abscess. Patient did receive prednisone, colchicine and morphine for pain. Patient's family members currently present at the bedside and stated watch out the patient home after discharge due to possible drowsiness of morphine. Patient be discharged with prednisone and Tylenol with codeine. Patient was instructed not to operate any machinery while taking Tylenol with codeine as it does cause drowsiness. Patient was instructed to follow-up with a primary care doctor in 3-5 days or if symptoms worsen and continue return to emergency room as soon as possible. At time of discharge, the patient does not seem toxic or ill in appearance. No acute signs of distress noted. Patient agrees to discharge treatment plan of care. No further questions noted by the patient. Critical care attestation.: If time is entered above; I have spent that time in minutes in the direct care of this critically ill patient, excluding procedure time. ED Disposition Clinical Impression: Gout of right foot Qualifiers: Gout etiology: unspecified cause Chronicity: acute Qualified Code(s): M10.9 - Gout, unspecified Disposition: - TO HOME OR SELFCARE Is pt being admited?: No Does the pt Need Aspirin: No Condition: Stable Instructions: Acute Gouty Arthritis (ED) Additional Instructions: Follow-up with a primary care doctor in 3-5 days or if symptoms worsen and continue return to emergency room as soon as possible. Prescriptions: Prednisone [predniSONE 10 mg (6-Day Pack, 21 Tabs)] 10 mg PO .TAPER #1 tab.ds.pk Acetaminophen/Codeine [Tylenol /Codeine # 3 tab] 1 tab PO Q6H PRN #12 tab PRN Reason: Pain , Severe (7-10) Referrals: CARMEL KAISER MD [Referring] - 3-5 Days MARI TIWARI MD [Staff Physician] - 3-5 Days [facility] [Outside] - 3-5 Days Forms: Work/School Release Form(ED)
== END 2019-08-29 18:55 | disposition home or self-care (01) ==
LOC: ED 15:40
DX: M10.9 Gout, unspecified (principal); G43.909 Migraine, unspecified, not intractable, without status migrainosus; F31.9 Bipolar disorder, unspecified; Z79.899 Other long term (current) drug therapy; Z91.041 Radiographic dye allergy status
CPT/HCPCS: 96374; 96375; 99283; J1100; J2270